=== PATIENT | female | born 1950 | race Caucasian/White ===

== ENCOUNTER 2022-11-30 06:40 | Day surgery (SDC) | payer MEDICARE, BC ==
[2022-11-23 10:31] LABS: Hemoglobin 10.8 g/dL (12.0-15.5); Mean Corpuscular HGB CONC 30.7 g/dL (32.0-36.0); Mean Corpuscular Hemoglobin 20.4 pg (27.0-33.0); Mean Corpuscular Volume 66.5 fl (81.6-98.3); Platelet Count 345 10x3/uL (150-450); RBC Distribution Width 14.8 % (11.5-14.5); Red Blood Cell (RBC) Count 5.29 10x6/uL (3.90-5.03); White Blood Cell (WBC) Count 7.9 10x3/uL (3.5-10.5)
[2022-11-23 10:34] LABS: Anion Gap 13 mmol/L (10-20); BUN (Urea Nitrogen) 16 mg/dL (9.8-20.1); Calc. Creatinine Clearance 0 mL/min (70-130); Calcium 9.7 mg/dL (7.8-10.44); Carbon Dioxide 27 mmol/L (23-31); Chloride 104 mmol/L (98-107); Estimated GFR 79; Glucose 108 mg/dL (83-110); Potassium 4.5 mmol/L (3.5-5.1); Sodium 139 mmol/L (136-145)
[2022-11-23 10:36] LABS: Prothrombin Time 10.9 sec (9.5-12.1)
[2022-11-29 09:33] VITALS: BMI 22.6
[2022-11-30] MEDS ORDERED: Heparin 10,000 UNITS/ 10 ML VIAL ONE (06:48)
[2022-11-30] MEDS ORDERED: Propofol 1,000 MG/100 ML VIAL IV ONE ×2 (06:51→09:00)
[2022-11-30] MEDS ORDERED: Midazolam HCl 2 mg/2 ml Vial ONE (06:51)
[2022-11-30] MEDS ORDERED: Ketamine 50 MG/ML (10ML VIAL) ONE (06:51)
[2022-11-30] MEDS ORDERED: fentaNYL PF 100 MCG/2 ML SYRINGE ONE (06:51)
[2022-11-30] MEDS ORDERED: Phenylephrine 10 MG/ML VIAL ONE (07:05)
[2022-11-30] MEDS ORDERED: Lidocaine 1% (PF) 30 ML VIAL ONE (07:17)
[2022-11-30] MEDS ORDERED: Glycopyrrolate 0.2 MG/ML 5 ML SYRINGE ONE (07:58)
[2022-11-30] MEDS ORDERED: Isoproterenol 0.2 MG/1 ML AMP ONE (09:17)
[2022-11-30] MEDS ORDERED: Protamine Sulfate 50 MG/5 ML VIAL ONE (09:44)
[2022-11-30] MEDS ORDERED: fentaNYL 50 mcg/mL 1 mL Vial ONE (11:11)
== END 2022-11-30 12:38 | disposition home or self-care (01) ==
LOC: SDC 06:40
PROVIDERS: ATTEND Internal Medicine Cardiovascular Disease
DX: I47.1 Supraventricular tachycardia (principal); I48.3 Typical atrial flutter; I10 Essential (primary) hypertension; Z90.710 Acquired absence of both cervix and uterus; Z87.891 Personal history of nicotine dependence; Z79.899 Other long term (current) drug therapy
CPT/HCPCS: 80048; 85027; 85610; 93005; 93620; 93623; J3010; J1644; J2001; J2250; J2370; J2704; J2720